=== PATIENT | female | born 1985 | race Caucasian/White ===

== ENCOUNTER 2019-03-09 19:17 | Emergency (ER) | payer OTHER ==
[2019-03-09 19:28] VITALS: BP 146/94; PULSE 86; TEMP 98; BMI 19.5
[2019-03-09] MEDS ORDERED: IBUPROFEN 600 MG TABLET (FP) PO ONE ×2 (19:28→20:31)
--- NOTE | 2019-03-09 19:28 | PDOC ---
Rapid Medical Evaluation Medical Evaluation: I have performed a brief in-person evaluation of this patient. The patient presents with a chief complaint of: heard pop of L calf while running today Pertinent physical exam findings: able to plantarflex L foot; no swelling of LLE , +L calf tenderness I have ordered the following: Shahnazrin The patient will proceed to the ED for further evaluation. 03/09/19 19:26 Discharge Disposition - Referrals Referrals: Mrii Mitchell STDNT [Primary Care Provider] - - Patient Instructions - Post Discharge Activity
--- NOTE | 2019-03-09 20:44 | PDOC ---
History of Present Illness - General Chief Complaint: Injury Stated Complaint: LEFT LEG PAIN Time Seen by Provider: 03/09/19 19:23 - History of Present Illness Initial Comments: 03/09/19 20:38 33 y/o F w/o CM presents for evaluation of a L calf injury [place] 03/09/19 20:39 Past History - Past Medical History Allergies/Adverse Reactions: Allergies Allergy/AdvReac Type Severity Reaction Status Date / Time No Known Allergies Allergy Verified 03/09/19 19:28 COPD: No Other medical history: DENIES - Surgical History GI Surgery: (HERNIA REPAIR) - Immunization History Immunization Up to Date: Yes - Suicide/Smoking/Psychosocial Hx Smoking History: Never smoked Have you smoked in the past 12 months: No Information on smoking cessation initiated: No Hx Alcohol Use: No Drug/Substance Use Hx: No Review of Systems - Review of Systems Musculoskeletal: Yes: Muscle Pain *Physical Exam - Vital Signs Last Vital Signs Temp Pulse Resp BP Pulse Ox 98.0 F 86 17 146/94 100 03/09/19 19:24 03/09/19 19:24 03/09/19 19:24 03/09/19 19:24 03/09/19 19:24 - Physical Exam Comments: 03/09/19 20:39 L calf skin color and temperature are normal, there is full AROM of the anklle with pain at terminal DF. Negative Sycamore Test. Tenderness about the medial head of the gastroc, no other areas of tenderness calf is otherwise soft and non tender and floppy. No gross sensory motor deficits [facility] ED Treatment Course - Medications Given in the ED: ED Medications Discontinued Medications Generic Name Dose Route Start Last Admin Trade Name Eleazarq PRN Reason Stop Dose Admin Ibuprofen 600 mg 03/09/19 19:28 03/09/19 20:34 Motrin - PO 03/09/19 19:29 600 mg ONCE ONE Administration Medical Decision Making - Medical Decision Making 03/09/19 20:44 Medial gastroc strain NWB with crutches f/u with ortho *DC/Admit/Observation/Transfer Diagnosis at time of Disposition: Gastrocnemius strain, left - Discharge Dispostion Disposition: HOME Condition at time of disposition: Stable Decision to Admit order: No - Referrals Referrals: Miri Mitchell STDNT [Primary Care Provider] - Alejandro Sterling DO [Staff Physician] - - Patient Instructions Additional Instructions: Remain non weight bearing with crutches, Tylenol and Motrin as directed for pain. Without fail, please follow up with orthopedic surgery in 1-2 days for further evaluation and treatment options. And return to the emergency room should symptoms worsen. - Post Discharge Activity
== END 2019-03-09 21:04 | disposition home or self-care (01) ==
LOC: JERFT 19:17
DX: S86.112A Strain of other muscle(s) and tendon(s) of posterior muscle group at lower leg level, left leg, initial encounter (principal); Y93.02 Activity, running; Y92.832 Beach as the place of occurrence of the external cause; Y99.8 Other external cause status
CPT/HCPCS: 99281-25